=== PATIENT | male | born 1935 | race Native Hawaiian/Other Pacific Islander ===

== ENCOUNTER 2016-11-16 12:30 | Outpatient (CLI) | payer OTHER | END 2016-11-16 19:09 | disposition home or self-care (01) | LOC: RAD 12:30 | DX: J38.01 Paralysis of vocal cords and larynx, unilateral (principal); I63.9 Cerebral infarction, unspecified; R06.09 Other forms of dyspnea ==

== ENCOUNTER 2017-01-19 11:06 | Outpatient (CLI) | payer OTHER | END 2017-01-19 12:00 | disposition home or self-care (01) | LOC: RAD 11:06 | DX: I69.991 Dysphagia following unspecified cerebrovascular disease (principal); J38.01 Paralysis of vocal cords and larynx, unilateral ==